=== PATIENT | female | born 1950 | race Caucasian/White ===

== ENCOUNTER 2019-03-22 13:11 | Emergency (ER) | payer MEDICARE, OTHER ==
[2019-03-22 13:23] VITALS: PULSE 91; O2SAT 94
--- NOTE | 2019-03-22 13:31 | ERPHSYRPT ---
- History of Present Illness Time Seen by Provider: 03/22/19 13:29 Source: patient Exam Limitations: no limitations Patient Subjective Stated Complaint: swallowed her daily meds and she thinks one is lodged in her lung, Triage Nursing Assessment: Pt walked into the ER, stated that she swallowed her pills and one was stuck and burning inside her right side of chest, right lung is wheezy, coarse and has stridor sounds, hypertensive, rates pain 5/10 Physician History: Pt walked into the ER, stated that she swallowed her pills and one was stuck and burning inside her right side of chest, Timing/Duration: today Associated Symptoms: cough Allergies/Adverse Reactions: Heparin Analogues [Heparin Agents] Allergy (Verified 03/22/19 13:24) iodine Allergy (Verified 03/22/19 13:24) nalbuphine [From Nubain] Allergy (Verified 03/22/19 13:24) Home Medications: Amitrip HCl/Chlordiazepoxide [Amitrip-Cdp 25-10 Tablet] 1 each PO HS 10/14/12 [ History] Aspirin EC 81 mg [Ecotrin 81 mg] 81 mg PO DAILY 10/14/12 [History] Buspirone HCl 15 mg PO BID 10/14/12 [History] Calcium Carbonate/Vitamin D3 [Calcium 600 + Vit D Caplet] 1 each PO DAILY [History] Cyanocobalamin 100 Mcg [Vitamin B-12 100 Mcg] 1 ml IM 10/14/12 [History] Divalproex Sodium 250 mg [Divalproex DR 250 mg Tab] 250 mg PO HS 10/14/12 [ History] Meloxicam 15 mg [Meloxicam 15 MG] 15 mg PO DAILY 10/14/12 [History] Metaxalone [Skelaxin] 800 mg PO QID 10/14/12 [History] Multivit with Calcium,Iron,Min [Womens Multiple Vitamins] 1 each PO DAILY [History] OXcarbazepine [Oxcarbazepine] 600 mg PO DAILY 10/14/12 [History] Omeprazole 40 mg PO BID 10/14/12 [History] Tizanidine HCl 4 mg PO BID 10/14/12 [History] Alprazolam [Xanax] 0.5 mg PO Q6HPRN PRN 03/12/15 [History] Hx Tetanus, Diphtheria Vaccination/Date Given: No Hx Influenza Vaccination/Date Given: Yes Hx Pneumococcal Vaccination/Date Given: No - Review of Systems Constitutional: No Symptoms Eyes: No Symptoms Ears, Nose, & Throat: No Symptoms Respiratory: Wheezing Cardiac: No Symptoms Abdominal/Gastrointestinal: No Symptoms Genitourinary Symptoms: No Symptoms Musculoskeletal: No Symptoms - Past Medical History Pertinent Past Medical History: Yes Neurological History: Peripheral Neuropathy ENT History: Macular Degeneration Cardiac History: Hypertension Respiratory History: Asthma Endocrine Medical History: No Pertinent History Musculoskeletal History: Arthritis, Fractures, Osteoporosis GI Medical History: Gallbladder Disease History: No Pertinent History Psycho-Social History: Anxiety Female Reproductive Disorders: Uterine Cancer Other Medical History: HEART CATH - Past Surgical History Past Surgical History: Yes Neuro Surgical History: No Pertinent History Cardiac: Cardiac Catheterization Respiratory: No Pertinent History Gastrointestinal: Cholecystectomy Genitourinary: No Pertinent History Musculoskeletal: Joint Replacement, Orthopedic Surgery Female Surgical History: Hysterectomy Other Surgical History: gastric bypass HYSTERECTOMY - Social History Smoking Status: Never smoker Exposure to second hand smoke: No Drug Use: none Patient Lives Alone: No - Female History Hx Now: No - Nursing Vital Signs Nursing Vital Signs: Initial Vital Signs O2 Sat by Pulse Oximetry 95 03/22/19 13:14 Pain Scale Pain Intensity 5 - Physical Exam General Appearance: no apparent distress, alert Eye Exam: PERRL/EOMI, eyes nml inspection Ears, Nose, Throat Exam: normal ENT inspection, TMs normal, pharynx normal, moist mucous membranes Neck Exam: normal inspection, non-tender, supple, full range of motion Respiratory Exam: wheezing, No respiratory distress Cardiovascular Exam: regular rate/rhythm, normal heart sounds, normal peripheral pulses Gastrointestinal/Abdomen Exam: soft, normal bowel sounds, No tenderness, No mass Back Exam: normal inspection, normal range of motion, No CVA tenderness, No vertebral tenderness Extremity Exam: normal inspection, normal range of motion, pelvis stable Neurologic Exam: alert, oriented x 3, cooperative, normal mood/affect, nml cerebellar function, nml station & gait, sensation nml, No motor deficits Skin Exam: normal color, warm, dry, No rash Lymphatic Exam: No adenopathy SpO2: 94 - Course Nursing assessment & vital signs reviewed: Yes - Radiology Exams Chest X-ray Interpretation: Reviewed by me, No Pneumonia, No Pneumothorax Abdomen X-ray Interpretation: Reviewed by me, Negative Ordered Tests: Active Orders 24 hr Category Date Time Status BARIUM SWALLOW ESOPHOGRAM Stat Exams 03/22/19 Ordered CHEST 2 VIEWS (PA AND LAT) Stat Exams 03/22/19 13:25 Taken KUB Stat Exams 03/22/19 13:25 Taken - Progress Progress: improved Counseled pt/family regarding: diagnosis, need for follow-up, rad results - Departure Departure Disposition: Home Clinical Impression: Pill dysphagia, Pill esophagitis Condition: Stable Critical Care Time: No Referrals: MYRA KELLER NP [Primary Care Provider] - Additional Instructions: During your ER visit, it appears that some of the medication pills she took one of them temporarily got stuck in the mid part of your esophagus and cause some scratching, which has been causing you coughing and wheezing. Please take all your medication not altogether, but out and take 1 or 2 pills at that time with either applesauce or milk. He will have some coughing spell for at least next 24 hours. Follow-up with your primary care physician in one to 2 days.
[2019-03-22 14:12] VITALS: BP 135/81
--- NOTE | 2019-03-22 21:14 | XRAY ---
Indication: Pill stuck in esophagus. Comparison: None KUB nonacute and nonobstructed with cholecystectomy clips, gastric bypass surgery, and a few pelvic phleboliths. Solid organs unremarkable. Osseous structures intact with moderate/advanced multilevel degenerative spondylosis and mild lumbar dextroscoliosis. Impression: Negative KUB with incidental chronic findings.
--- NOTE | 2019-03-22 21:17 | XRAY ---
Indication: Pill stuck in esophagus. Comparison: October 14, 2012. PA/lateral chest demonstrates minimal left mid lung fibrosis/scarring. No focal infiltrate, consolidation, large effusion, or radiopaque foreign body. Heart and mediastinal structures are within normal limits. Bony thorax intact with mild degenerative changes including right shoulder and lumbar scoliosis. Impression: Nonacute chest with chronic features.
== END 2019-03-22 14:11 | disposition home or self-care (01) ==
LOC: ED 13:11
DX: R13.10 Dysphagia, unspecified (principal); K20.9 Esophagitis, unspecified; T18.198A Other foreign object in esophagus causing other injury, initial encounter; I10 Essential (primary) hypertension; M81.0 Age-related osteoporosis without current pathological fracture; G62.9 Polyneuropathy, unspecified; J45.909 Unspecified asthma, uncomplicated; Z79.899 Other long term (current) drug therapy; Z85.42 Personal history of malignant neoplasm of other parts of uterus
CPT/HCPCS: 71046; 74018; 99283

== ENCOUNTER 2021-06-08 14:16 | Day surgery (SDC) | payer MEDICARE, OTHER ==
[2021-06-08] MEDS ORDERED: Sodium Chloride 0.9(Preservative Free) 10 ML IJ ONE (14:17)
[2021-06-08] MEDS ORDERED: Depo-Medrol 40 MG/ML IM ONE (14:17)
[2021-06-08] MEDS ORDERED: DIPRIVAN 200 MG/20 ML IV ONE (15:19)
[2021-06-08] MEDS ORDERED: Lactated Ringers 1,000 ML IV ONE (15:23)
[2021-06-08] MEDS ORDERED: MORPHINE SULFATE 2 MG INJ ONE (15:40)
--- NOTE | 2021-06-08 16:41 | XRAY ---
Indication: Right L3-L5 transforaminal VEENA. Intraoperative fluoroscopy provided for 57 seconds. 5 digital spot images submitted for interpretation demonstrates posterior needle tips projecting over the expected right L4 and L5 nerve roots. Small amount of contrast injected for needle tip placement. Correlate with intraoperative findings/report.
--- NOTE | 2021-06-08 16:44 | XRAY ---
57 seconds fluoroscopy time in surgery for right L3-L5 transforaminal VEENA.
== END 2021-06-08 15:55 | disposition home or self-care (01) ==
LOC: SDC-PAIN 14:16
PROVIDERS: ATTEND Psychiatry & Neurology Pain Medicine
DX: M54.16 Radiculopathy, lumbar region (principal); Z79.899 Other long term (current) drug therapy
CPT/HCPCS: 64483; 64484; 72100; 77003; J1030; J2270; J2704; Q9966

== ENCOUNTER 2021-06-22 07:37 | Day surgery (SDC) | payer MEDICARE, OTHER ==
[2021-06-22] MEDS ORDERED: Depo-Medrol 40 MG/ML IM ONE (07:38)
[2021-06-22] MEDS ORDERED: LIDOCAINE HCL 2% 100 MG/5 ML IJ ONE (07:38)
[2021-06-22] MEDS ORDERED: DIPRIVAN 200 MG/20 ML IV ONE (08:50)
--- NOTE | 2021-06-22 10:22 | XRAY ---
Indication: Bilateral L4-S1 MBB. Intraoperative fluoroscopy provided for 17 seconds. Single digital spot image submitted for interpretation demonstrates posterior needle tips projecting over the expected left and right L4-S1 nerve roots. Correlate with intraoperative findings/report.
--- NOTE | 2021-06-22 12:09 | XRAY ---
17 seconds of fluoroscopy was used in surgery for a bilateral L4-S1 MBB.
[2021-06-22] MEDS ORDERED: Lactated Ringers 1,000 ML IV ONE (16:25)
== END 2021-06-22 09:40 | disposition home or self-care (01) ==
LOC: SDC-PAIN 07:37
PROVIDERS: ATTEND Psychiatry & Neurology Pain Medicine
DX: M47.816 Spondylosis without myelopathy or radiculopathy, lumbar region (principal); Z79.899 Other long term (current) drug therapy
CPT/HCPCS: 64493; 64494; 72020; 77002; J1030; J2704

== ENCOUNTER 2021-08-03 11:27 | Day surgery (SDC) | payer MEDICARE, OTHER ==
[~2021-08-03 11:27] MED LIST: BENADRYL 50 MG/ML IV SCH
[2021-08-03] MEDS ORDERED: BUPIVACAINE 0.5% VIAL IJ ONE (11:28)
[2021-08-03] MEDS ORDERED: Depo-Medrol 40 MG/ML IM ONE (11:28)
[2021-08-03] MEDS ORDERED: BENADRYL 50 MG/ML ONE (11:51)
[2021-08-03] MEDS ORDERED: DIPRIVAN 200 MG/20 ML IV ONE (13:18)
--- NOTE | 2021-08-03 14:20 | XRAY ---
12 seconds fluoroscopy time in surgery for bilateral L4-S1 MBB
[2021-08-03] MEDS ORDERED: Lactated Ringers 1,000 ML IV ONE (14:31)
--- NOTE | 2021-08-03 14:31 | XRAY ---
Indication: Bilateral L4-S1 MBB. Intraoperative fluoroscopy provided for 12 seconds. Single digital spot image submitted for interpretation demonstrates posterior needle tips projecting over the expected left and right L4-S1 nerve roots. Correlate with intraoperative findings/report.
== END 2021-08-03 13:45 | disposition home or self-care (01) ==
LOC: SDC-PAIN 11:27
PROVIDERS: ATTEND Psychiatry & Neurology Pain Medicine
DX: M47.816 Spondylosis without myelopathy or radiculopathy, lumbar region (principal); I10 Essential (primary) hypertension; Z79.899 Other long term (current) drug therapy
CPT/HCPCS: 64493; 64494; 72020; 77002; J1030; J1200; J2704

== ENCOUNTER 2021-08-24 10:05 | Day surgery (SDC) | payer MEDICARE, OTHER ==
[2021-08-24] MEDS ORDERED: Xylocaine 1% Vial 30 ML PF IJ ONE (10:06)
[2021-08-24] MEDS ORDERED: BUPIVACAINE 0.5% VIAL IJ ONE (10:06)
[2021-08-24] MEDS ORDERED: Depo-Medrol 40 MG/ML IM ONE (10:06)
[2021-08-24] MEDS ORDERED: BENADRYL 50 MG/ML ONE (11:21)
[2021-08-24] MEDS ORDERED: DIPRIVAN 200 MG/20 ML IV ONE ×2 (11:47→12:18)
[2021-08-24] MEDS ORDERED: Ketamine HCl 50 MG/ML ONE (11:47)
[2021-08-24] MEDS ORDERED: Lactated Ringers 1,000 ML IV ONE (12:05)
--- NOTE | 2021-08-24 13:19 | XRAY ---
Indication: Right L4-S1 RFA. Intraoperative fluoroscopy provided for 31 seconds. 3 digital spot image submitted for interpretation demonstrates posterior needle tips projecting over the expected right L4-S1 nerve roots. Correlate with intraoperative findings/report.
--- NOTE | 2021-08-24 13:23 | XRAY ---
31 seconds fluoroscopy time in surgery for right L4-S1 RFA.
== END 2021-08-24 12:20 | disposition home or self-care (01) ==
LOC: SDC-PAIN 10:05
PROVIDERS: ATTEND Psychiatry & Neurology Pain Medicine
DX: M47.816 Spondylosis without myelopathy or radiculopathy, lumbar region (principal); Z79.899 Other long term (current) drug therapy
CPT/HCPCS: 64635; 64636; 72100; 77002; J1030; J1200; J2001; J2704

== ENCOUNTER 2021-08-31 12:52 | Day surgery (SDC) | payer MEDICARE, OTHER ==
[2021-08-31] MEDS ORDERED: Xylocaine 1% Vial 30 ML PF IJ ONE (12:53)
[2021-08-31] MEDS ORDERED: Depo-Medrol 40 MG/ML IM ONE (12:53)
[2021-08-31] MEDS ORDERED: BUPIVACAINE 0.5% VIAL IJ ONE (12:53)
[2021-08-31] MEDS ORDERED: BENADRYL 50 MG/ML ONE ×2 (13:14→15:08)
[2021-08-31] MEDS ORDERED: Lactated Ringers 1,000 ML IV ONE (14:57)
[2021-08-31] MEDS ORDERED: DIPRIVAN 200 MG/20 ML IV ONE (15:07)
--- NOTE | 2021-08-31 17:05 | XRAY ---
29 seconds of fluoroscopy was used in surgery for a left L4-S1 RFA.
--- NOTE | 2021-08-31 17:09 | XRAY ---
Indication: Left L4-S1 RFA. Intraoperative fluoroscopy provided for 29 seconds. 3 digital spot image submitted for interpretation demonstrates posterior needle tips projecting over the expected left L4-S1 nerve roots. Correlate with intraoperative findings/report.
== END 2021-08-31 15:45 | disposition home or self-care (01) ==
LOC: SDC-PAIN 12:52
PROVIDERS: ATTEND Psychiatry & Neurology Pain Medicine
DX: M47.816 Spondylosis without myelopathy or radiculopathy, lumbar region (principal); I10 Essential (primary) hypertension; Z79.899 Other long term (current) drug therapy
CPT/HCPCS: 64635; 64636; 72100; 77002; J1030; J1200; J2001; J2704

== ENCOUNTER 2021-10-03 08:45 | Day surgery (SDC) | payer MEDICARE, OTHER ==
--- NOTE | 2021-10-03 08:17 | HP ---
DATE OF SURGERY: 10/03/2021 HISTORY OF PRESENT ILLNESS: The patient is a 70-year-old with some heartburn up into her jaw area, some dysphagia upper esophagus at times. Family history negative for esophageal cancer. She is in need of upper endoscopy possible biopsy, possible dilatation. PAST MEDICAL HISTORY: Arthritis, chronic migraines, asthma. PAST SURGICAL HISTORY: Knees replacement. Left ankle surgery in the past. Stomach bypass in the past. Heart cath. Endoscopy in the past. Hysterectomy for uterine cancer in the past. Breast cancer with partial mastectomy and radiation treatment in the past. MEDICATIONS: Includes multivitamin, magnesium complex, baby aspirin, Probiotic, glucosamine, vitamin D3, zinc, iron, melatonin, lutein, calcium with vitamin D, potassium, furosemide, Valproic acid, colchicine, levothyroxine for some hypothyroidism, metoprolol, diclofenac, tamoxifen, meclizine, amitriptyline, omeprazole, valsartan, Fosamax, perphenazine, Zonegran, memantine, vitamin B12, diphenhydramine PRN, baclofen, Vicodin PRN, hydroxyzine PRN, fluconazole. ALLERGIES: NUBAIN. IODINE. HEPARIN. SHE HAD PROBLEMS CHLORAPREP IN THE PAST. FAMILY HISTORY: Negative for esophageal cancer. SOCIAL HISTORY: No smoking or alcohol abuse. REVIEW OF SYSTEMS: Fourteen systems reviewed pertinent for multiple problems noted above and per admission assessment. No chest pain or palpitations. PHYSICAL EXAMINATION: GENERAL: No acute distress. HEENT: Sclerae nonicteric. NECK: No JVD. CHEST: Equal excursion, nonlabored breathing. CVS: Regular rate and rhythm. ABDOMEN: Soft. No peritoneal signs. EXTREMITIES: No significant edema. NEURO: Alert, oriented, moving extremities symmetrically. PSYCH: Appropriate mood and affect. IMPRESSION: Increased reflux with history of some dysphagia upper esophagus. She is in need of upper endoscopy possible biopsy possible dilatation. Risks and benefits explained in detail including but not limited to bleeding or infection, risk of bowel injury or perforation possibly requiring open procedure, risk of missed or nondiagnosis or incomplete exam possibly requiring barium swallow, other studies or procedures. General risk of anesthesia or sedation. If dilatation performed possibility may need to be repeated again down the road if it improves her swallowing. There is a possibility she may have more of a neurologic or functional problem then dilatation may not improve her swallowing. She may need further work up and/or testing, other studies or procedures or referrals. She understands she has slight increased risk of perforation if dilatation performed possibly requiring major procedure, ongoing morbidity/mortality but not limited to. Will proceed with EGD possible biopsy, possible dilatation as an outpatient.
[2021-10-03] MEDS ORDERED: Lactated Ringers 1,000 ML IV SCH (09:00)
[2021-10-03] MEDS ORDERED: Lactated Ringers 1,000 ML IV ONE (09:11)
[2021-10-03] MEDS ORDERED: Xylocaine-Mpf 2% 5 Ml Vial ONE (11:05)
[2021-10-03] MEDS ORDERED: DIPRIVAN 200 MG/20 ML IV ONE ×2 (11:05→11:23)
[2021-10-03 12:38] VITALS: BP 140/91; PULSE 78; O2SAT 99
--- NOTE | 2021-10-03 15:24 | OP ---
SURGERY DATE/TIME: 10/03/2021 1108 PREOPERATIVE DIAGNOSIS: Some dysphagia and some epigastric pain. POSTOPERATIVE DIAGNOSES: 1) Proximal esophageal narrowing and spasm without evidence of any mass. 2) Large amount of mucous throughout the esophagus and upper GI tract. PROCEDURES: 1) Esophagogastrojejunoscopy with random cold biopsy of small bowel for path, random cold biopsies to evaluate for path, random cold biopsies mid esophagus to evaluate for eosinophilic esophagitis or other etiology. 2) Proximal esophageal balloon dilatation (size 20 balloon dilator). SURGEON: Dr. Edward Dyer. ANESTHESIA: MAC. ESTIMATED BLOOD LOSS: Minimal. INDICATIONS: As noted above. Risks and benefits explained in detail and not limited to and consent obtained. DESCRIPTION OF PROCEDURE AND FINDINGS: The patient is taken to the endoscopy room. MAC anesthesia introduced. After official time out and no disagreement with planned procedure, bite block positioned. Video gastroscope passed down the oropharynx. There was some spasm and narrowing of proximal esophagus. There was no gross mass or lesion to biopsy. The scope was able to be passed through here into her stomach pouch into her jejunal loop. She had a large amount of mucous throughout the esophagus and stomach pouch. Because of this she had a little bit of epigastric discomfort. It was felt she warranted random cold biopsies of the small bowel, stomach as well as the mid esophagus to evaluate for other etiology and to evaluate for eosinophilic esophagitis as well. The gastroesophageal junction had been about 38 cm. Z-line as fairly crisp. There were no signs of any obvious erosions. No signs of any Roberts's. After doing a biopsy, good hemostasis noted. The scope passed back down into the stomach pouch. The size 20 balloon catheter carefully advanced under direct vision and pulled up to the proximal esophageal narrowed area where it was carefully inflated first stage for 40 seconds, second stage 45 seconds, final stage 2 minutes size 20 balloon dilator The balloon was then released and withdrawn. The scope much more easily passed through this area back down in the stomach and carefully withdrawn. There was no evidence of any full thickness issues. No evidence of any injury secondary to dilatation. The patient tolerated the procedure well. There is no family here to discuss the findings with.
== END 2021-10-03 12:30 | disposition home or self-care (01) ==
LOC: SDC 08:45
PROVIDERS: ATTEND Surgery
DX: Q39.3 Congenital stenosis and stricture of esophagus (principal); R10.13 Epigastric pain; R13.10 Dysphagia, unspecified; K22.4 Dyskinesia of esophagus
CPT/HCPCS: C1726; J2704

== ENCOUNTER 2021-12-28 07:00 | Day surgery (SDC) | payer MEDICARE, OTHER ==
[2021-12-28] MEDS ORDERED: BUPIVACAINE 0.5% VIAL IJ ONE (07:01)
[2021-12-28] MEDS ORDERED: Depo-Medrol 40 MG/ML IM ONE (07:01)
[2021-12-28] MEDS ORDERED: Lactated Ringers 1,000 ML IV ONE (08:23)
[2021-12-28] MEDS ORDERED: DIPRIVAN 200 MG/20 ML IV ONE (08:45)
--- NOTE | 2021-12-28 10:12 | XRAY ---
Indication: Bilateral SI joint injection. Intraoperative fluoroscopy provided for 25 seconds. 4 digital spot images submitted for interpretation demonstrates posterior needle tip projecting over the inferior left and right SI joint. Correlate with intraoperative findings/report.
--- NOTE | 2021-12-28 11:36 | XRAY ---
18 seconds fluoroscopy time in surgery for injections of both SI joints.
== END 2021-12-28 09:08 | disposition home or self-care (01) ==
LOC: SDC-PAIN 07:00
PROVIDERS: ATTEND Psychiatry & Neurology Pain Medicine
DX: M46.1 Sacroiliitis, not elsewhere classified (principal); I10 Essential (primary) hypertension; Z79.899 Other long term (current) drug therapy
CPT/HCPCS: 27096; 72202; 77002; G0260; J1030; J2704

== ENCOUNTER 2022-02-28 15:50 | Emergency (ER) | payer MEDICARE, OTHER ==
--- NOTE | 2022-02-28 16:39 | ERPHSYRPT ---
- History of Present Illness Time Seen by Provider: 02/28/22 16:20 Source: patient Exam Limitations: no limitations Patient Subjective Stated Complaint: pt here for profound weakness that started yesterday, she also states she was nasueated yesterdy and vomited a few times, states last night her left eye was drooping and she was falling a sleep while trying to get out of bed Triage Nursing Assessment: pt alert, oreinted, arrived per , able to walked to bathroom for hallway, skin w/d/p. face mask inplace. no edema noted, abd soft Physician History: Patient is a 71-year-old white female who presents with a complaint of the sudden onset of weakness yesterday while she was traveling nausea and vomiting. She was traveling to [place] and started feeling tired but when she got there she felt better and then on the way home last night she had a droopy left eyelid and was falling asleep she. She also complained of weakness nausea and today slept all day. She also reportedly had a fever of 100.7 at home last night. She has multiple medical problems and a very long list of medications Timing/Duration: yesterday Severity: moderate Modifying Factors: Improves With: rest Associated Symptoms: nausea, vomiting, weakness Allergies/Adverse Reactions: Heparin Analogues [Heparin Agents] Allergy (Verified 02/28/22 16:15) Difficulty Breathing states increased heartrate iodine Allergy (Verified 02/28/22 16:15) Rash itching iodine povacrylex [From DuraPrep] Allergy (Verified 02/28/22 16:15) isopropyl alcohol [From DuraPrep] Allergy (Verified 02/28/22 16:15) nalbuphine [From Nubain] Allergy (Verified 02/28/22 16:15) Difficulty Breathing states hives and rash povidone-iodine [From Betadine] Allergy (Verified 02/28/22 16:15) chloraprep Allergy (Uncoded 02/28/22 16:15) Home Medications: Calcium Carbonate/Vitamin D3 [Calcium 600-Vit D3 400 Caplet] 1 each PO DAILY 10/14/12 [History] Multivit with Calcium,Iron,Min [Womens Multiple Vitamins] 1 each PO DAILY 10/14/12 [History] Omeprazole 40 mg PO DAILY 10/14/12 [History] ALPRAZolam [Xanax] 0.5 mg PO Q6HPRN PRN 03/12/15 [History] Baclofen 10 mg [Lioresal 10 mg] 20 mg PO TID PRN 03/22/19 [History] Diclofenac Sodium 75 mg PO BID 03/22/19 [History] Diphenhydramine HCl 50 mg/ml [Benadryl 50 mg/ml] 50 mg SQ Q12H 03/22/19 [History] Glucosamine Sulfate 1,000 mg PO DAILY 03/22/19 [History] Memantine HCl 10 mg PO BID 03/22/19 [History] Metoprolol Succinate 50 mg [Toprol Xl 50 MG] 50 mg PO HS 03/22/19 [History] Perphenazine 4 mg PO HS 03/22/19 [History] Promethazine HCl 50 mg PO Q6H PRN 03/22/19 [History] Tamoxifen Citrate 20 mg PO HS 03/22/19 [History] Valsartan 80 mg PO HS 03/22/19 [History] hydrOXYzine HCL [Hydroxyzine HCl] 50 mg PO DAILY PRN 03/22/19 [History] Butalbit/Acetamin/Caff/Codeine [Fioricet-Cod 41-182-74-30 Cap] 1 each PO UD 09/21/21 [History] Furosemide 20 mg [Lasix 20 mg] 20 mg PO DAILY 09/21/21 [History] Lutein 40 mg PO HS 09/21/21 [History] Melatonin 10 mg PO HS 09/21/21 [History] Zinc Amino Acid Chelate [Zinc] 50 mg PO DAILY 09/21/21 [History] Albuterol 8 gm Mdi Hfa [Ventolin Hfa MDI] 8 gm IH QIDPRN PRN 01/04/22 [History] Alendronate Sodium 70 mg [Fosamax 70 MG] 70 mg PO WEEKLY 01/04/22 [History] Allopurinol 300 mg [Zyloprim 300 mg] 300 mg PO DAILY 01/04/22 [History] Cholecalciferol (Vitamin D3) [Vitamin D3] 25 mcg PO DAILY 01/04/22 [History] Fluticasone Propion/Salmeterol [Fluticasone-Salmeterol 250-50] 1 each IH UD 01/04/22 [History] Hydrocodone/Acetaminophen [Vicodin Hp 10-300 mg Tablet] 5 - 325 mg PO DAILY PRN PRN 01/04/22 [History] Indomethacin 50 mg PO DAILY 01/04/22 [History] Lactobacillus Combination No.4 [Probiotic] 1 each PO DAILY 01/04/22 [History] Levothyroxine Sodium 88 Mcg [Synthroid 88 Mcg] 88 mcg PO DAILY 01/04/22 [History] Magnesium Oxide,Aspartate,Citr [Triple Magnesium Complex] 500 mg PO UD 01/04/22 [History] Potassium Chloride 10 meq PO DAILY 01/04/22 [History] Triamcinolone 0.1% Cream [Kenalog 0.1% Cream 15 gm] 15 gm TP UD 01/04/22 [History] Ubrogepant [Ubrelvy] 50 mg PO DAILY 01/04/22 [History] Valproic Acid 250 mg PO DAILY 01/04/22 [History] Zonisamide [Zonegran] 50 mg PO DAILY 01/04/22 [History] Iron,Carbonyl [Iron Chews] 65 mg DAILY 02/28/22 [History] Hx Tetanus, Diphtheria Vaccination/Date Given: No Hx Influenza Vaccination/Date Given: Yes Hx Pneumococcal Vaccination/Date Given: Yes Immunizations Up to Date: Yes Travel Risk - International Travel Have you traveled outside of the country in past 3 weeks: No - Coronavirus Screening Are you exhibiting any of the following symptoms?: Yes Symptoms: Fever, Vomiting/Diarrhea Close contact with a COVID-19 positive Pt in past 14-21 Days: No - Vaccine Status Have you recieved a Covid-19 vaccination: Yes [employer] Professional: Moderna - Vaccination Dates Date of 2cond Vaccination (if applicable): 2020 - Review of Systems Constitutional: Lethargy, Weakness Eyes: Other (Transient droopiness of the left eye) Ears, Nose, & Throat: No Symptoms Respiratory: No Cough, No Dyspnea Cardiac: No Chest Pain, No Edema, No Syncope Abdominal/Gastrointestinal: Nausea, Vomiting, Diarrhea Genitourinary Symptoms: Frequency, Urgency Musculoskeletal: No Back Pain, No Neck Pain Skin: No Rash Neurological: Dizziness, Headache Psychological: No Symptoms Endocrine: No Symptoms - Past Medical History Pertinent Past Medical History: Yes Neurological History: Peripheral Neuropathy ENT History: Macular Degeneration Cardiac History: Angina, Hypertension, Other Respiratory History: Asthma, Sleep Apnea Endocrine Medical History: No Pertinent History Musculoskeletal History: Arthritis, Fractures, Osteoporosis GI Medical History: Gallbladder Disease History: No Pertinent History Psycho-Social History: Anxiety Female Reproductive Disorders: Breast Cancer, Uterine Cancer Other Medical History: HEART CATH. hx palpatations - Past Surgical History Past Surgical History: Yes Neuro Surgical History: No Pertinent History Cardiac: Cardiac Catheterization Respiratory: No Pertinent History Gastrointestinal: Cholecystectomy Genitourinary: No Pertinent History Musculoskeletal: Joint Replacement, Orthopedic Surgery Female Surgical History: Hysterectomy Other Surgical History: gastric bypass HYSTERECTOMY, bilat knee replacement, left ankle - Social History Smoking Status: Never smoker Exposure to second hand smoke: No Drug Use: none Patient Lives Alone: No - Nursing Vital Signs Nursing Vital Signs: Initial Vital Signs Temperature 97 F 02/28/22 16:05 Pulse Rate 75 02/28/22 16:05 Respiratory Rate 20 02/28/22 16:05 Blood Pressure 119/46 02/28/22 16:05 O2 Sat by Pulse Oximetry 95 02/28/22 16:05 Pain Scale Pain Intensity 4 - Physical Exam General Appearance: mild distress, alert, obese Eye Exam: PERRL/EOMI, eyes nml inspection Ears, Nose, Throat Exam: normal ENT inspection, TMs normal, pharynx normal, moist mucous membranes Neck Exam: normal inspection, non-tender, supple, full range of motion Respiratory Exam: normal breath sounds, lungs clear, No respiratory distress Cardiovascular Exam: regular rate/rhythm, normal heart sounds, normal peripheral pulses Gastrointestinal/Abdomen Exam: soft, normal bowel sounds, No tenderness, No mass Back Exam: normal inspection, normal range of motion, No CVA tenderness, No vert ebral tenderness Extremity Exam: normal inspection, normal range of motion, pelvis stable Neurologic Exam: alert, oriented x 3, cooperative, normal mood/affect, nml cerebellar function, nml station & gait, sensation nml, No motor deficits Skin Exam: normal color, warm, dry, No rash Lymphatic Exam: No adenopathy SpO2 Interpretation: normal SpO2: 95 O2 Delivery: Room Air - Course Nursing assessment & vital signs reviewed: Yes - Radiology Exams Abdomen X-ray Interpretation: Negative - CT Exams Head CT Interpretation: Negative Abdomen/Pelvis CT Interpretation: Other (No acute findings) Ordered Tests: Active Orders 24 hr Category Date Time Status EKG-ER Only STAT Care 02/28/22 16:07 Active IV Insertion STAT Care 02/28/22 16:07 Active ABDOMEN AND PELVIS W/0 CONTRAS [CT] Stat Exams 02/28/22 17:49 Taken HEAD WITHOUT CONTRAST [CT] Stat Exams 02/28/22 16:33 Completed OBSTR/ACUTE ABDOMEN SERIES Stat Exams 02/28/22 16:10 Completed AMYLASE Stat Lab 02/28/22 16:35 Completed BLOOD CULTURE Stat Lab 02/28/22 16:50 Received CBC W DIFF Stat Lab 02/28/22 16:35 Completed CMP Stat Lab 02/28/22 16:35 Completed CULTURE,URINE Stat Lab 02/28/22 16:20 Received LIPASE Stat Lab 02/28/22 16:35 Completed Lactic Acid Stat Lab 02/28/22 16:30 Completed Lactic Acid Stat Lab 02/28/22 18:36 Received PROTIME WITH INR Stat Lab 02/28/22 16:35 Completed TROPONIN Q3H Lab 02/28/22 16:35 Completed TROPONIN Q3H Lab 02/28/22 19:15 Ordered TROPONIN Q3H Lab 02/28/22 22:15 Ordered TROPONIN Q3H Lab 03/01/22 01:15 Ordered TROPONIN Q3H Lab 03/01/22 04:15 Ordered UA W/RFX CULTURE Stat Lab 02/28/22 16:20 Completed Medication Summary Generic Name Dose Route Start Last Admin Trade Name Freq PRN Reason Stop Dose Admin Ceftriaxone Sodium/Dextrose 1 g in 50 mls @ 100 mls/hr 02/28/22 19:05 02/28/22 19:10 Rocephin 1 Gm-D5w 50 Ml Bag IV 02/28/22 19:34 100 ml/hr STAT STA 100 mls/hr Administration Discontinued Medications Generic Name Dose Route Start Last Admin Trade Name Freq PRN Reason Stop Dose Admin Ceftriaxone Sodium/Dextrose Confirm 02/28/22 19:09 Rocephin 1 Gm-D5w 50 Ml Bag Administered 02/28/22 19:10 Dose 1 g in 50 mls @ ud IV .STK-MED ONE Lab/Rad Data: Laboratory Result Diagrams 02/28/22 16:35 02/28/22 16:35 Laboratory Results 02/28/22 02/28/22 02/28/22 Range/Units 17:45 16:35 16:35 WBC (4.0-10.5) x10^3/uL RBC (4.1-5.4) x10^6/uL Hgb (12.0-16.0) g/dL Hct (35-47) % MCV (78-100) fL MCH (26-32) pg MCHC (32-36) g/dL RDW (11.5-14.0) % Plt Count (150-450) x10^3/uL MPV (7.5-11.0) fL Gran % (36.0-66.0) % Immature Gran % (Auto) (0.00-0.4) % Nucleat RBC Rel Count (0.00-0.1) % Eos # (Auto) (0-0.5) x10^3/uL Immature Gran # (Auto) (0.00-0.03) x10^3u/L Absolute Lymphs (auto) (1.0-4.6) x10^3/uL Absolute Monos (auto) (0.0-1.3) x10^3/uL Absolute Nucleated RBC (0.00-0.01) x10^3u/L Lymphocytes % (24.0-44.0) % Monocytes % (0.0-12.0) % Eosinophils % (0.00-5.0) % Basophils % (0.0-0.4) % Absolute Granulocytes (1.4-6.9) x10^3/uL Basophils # (0-0.4) x10^3/uL PT 11.2 (9.4-12.5) SECONDS INR 1.06 (0.8-3.0) Sodium (137-145) mmol/L Potassium (3.5-5.1) mmol/L Chloride (98-107) mmol/L Carbon Dioxide (22-30) mmol/L Anion Gap (5-15) MEQ/L BUN (7-17) mg/dL Creatinine (0.52-1.04) mg/dL Estimated GFR ML/MIN Glucose (74-106) mg/dL Lactic Acid (0.4-2.0) Calcium (8.4-10.2) mg/dL Total Bilirubin (0.2-1.3) mg/dL AST (14-36) U/L ALT (0-35) U/L Alkaline Phosphatase (38-126) U/L Troponin I < 0.012 (0.000-0.034) ng/mL Serum Total Protein (6.3-8.2) g/dL Albumin (3.5-5.0) g/dL Amylase (30-110) U/L Lipase (23-300) U/L Urinalys Dipstick Clnc Urine Color (YELLOW) Urine Appearance (CLEAR) Urine pH (5-6) Ur Specific [place] (1.005-1.025) POC Urine Protein Conf (Negative) Urine Ketones (NEGATIVE) Urine Nitrite (NEGATIVE) Urine Bilirubin (NEGATIVE) Urine Urobilinogen (0-1) mg/dL Urine Leukocytes (NEGATIVE) Urine WBC (Auto) (0-5) /HPF Urine RBC (Auto) (0-2) /HPF U Hyaline Cast (Auto) (0-2) /LPF U Epithel Cells (Auto) (FEW) /HPF Urine Bacteria (Auto) (NEGATIVE) /HPF Urine RBC (0-5) [place]/ul Unidentified Crystals (NEGATIVE) /HPF Other Casts (Auto) (NEGATIVE) /LPF Urine Mucus (Auto) (NEGATIVE) /HPF Ur Culture Indicated? Urine Glucose (NEGATIVE) mg/dL Influenza Type A Ag NEGATIVE (NEGATIVE) Influenza Type B Ag NEGATIVE (NEGATIVE) RSV (PCR) NEGATIVE (Negative) SARS-CoV-2 (PCR) NEGATIVE (NEGATIVE) 02/28/22 02/28/22 02/28/22 Range/Units 16:35 16:35 16:30 WBC 15.5 H (4.0-10.5) x10^3/uL RBC 3.89 L (4.1-5.4) x10^6/uL Hgb 12.2 (12.0-16.0) g/dL Hct 38.6 (35-47) % MCV 99.2 (78-100) fL MCH 31.4 (26-32) pg MCHC 31.6 L (32-36) g/dL RDW 13.4 (11.5-14.0) % Plt Count 287 (150-450) x10^3/uL MPV 10.3 (7.5-11.0) fL Gran % 80.4 H (36.0-66.0) % Immature Gran % (Auto) 0.4 (0.00-0.4) % Nucleat RBC Rel Count 0.0 (0.00-0.1) % Eos # (Auto) 0.20 (0-0.5) x10^3/uL Immature Gran # (Auto) 0.06 H (0.00-0.03) x10^3u/L Absolute Lymphs (auto) 1.95 (1.0-4.6) x10^3/uL Absolute Monos (auto) 0.77 (0.0-1.3) x10^3/uL Absolute Nucleated RBC 0.00 (0.00-0.01) x10^3u/L Lymphocytes % 12.6 L (24.0-44.0) % Monocytes % 5.0 (0.0-12.0) % Eosinophils % 1.3 (0.00-5.0) % Basophils % 0.3 (0.0-0.4) % Absolute Granulocytes 12.43 H (1.4-6.9) x10^3/uL Basophils # 0.04 (0-0.4) x10^3/uL PT (9.4-12.5) SECONDS INR (0.8-3.0) Sodium 136 L (137-145) mmol/L Potassium 4.2 (3.5-5.1) mmol/L Chloride 104 (98-107) mmol/L Carbon Dioxide 26 (22-30) mmol/L Anion Gap 11.0 (5-15) MEQ/L BUN 20 H (7-17) mg/dL Creatinine 0.82 (0.52-1.04) mg/dL Estimated GFR > 60.0 ML/MIN Glucose 135 H (74-106) mg/dL Lactic Acid 2.5 H (0.4-2.0) Calcium 8.3 L (8.4-10.2) mg/dL Total Bilirubin 0.80 (0.2-1.3) mg/dL AST 26 (14-36) U/L ALT 18 (0-35) U/L Alkaline Phosphatase 44 (38-126) U/L Troponin I (0.000-0.034) ng/mL Serum Total Protein 5.8 L (6.3-8.2) g/dL Albumin 3.1 L (3.5-5.0) g/dL Amylase 45 (30-110) U/L Lipase 13 L (23-300) U/L Urinalys Dipstick Clnc Urine Color (YELLOW) Urine Appearance (CLEAR) Urine pH (5-6) Ur Specific [place] (1.005-1.025) POC Urine Protein Conf (Negative) Urine Ketones (NEGATIVE) Urine Nitrite (NEGATIVE) Urine Bilirubin (NEGATIVE) Urine Urobilinogen (0-1) mg/dL Urine Leukocytes (NEGATIVE) Urine WBC (Auto) (0-5) /HPF Urine RBC (Auto) (0-2) /HPF U Hyaline Cast (Auto) (0-2) /LPF U Epithel Cells (Auto) (FEW) /HPF Urine Bacteria (Auto) (NEGATIVE) /HPF Urine RBC (0-5) [place]/ul Unidentified Crystals (NEGATIVE) /HPF Other Casts (Auto) (NEGATIVE) /LPF Urine Mucus (Auto) (NEGATIVE) /HPF Ur Culture Indicated? Urine Glucose (NEGATIVE) mg/dL Influenza Type A Ag (NEGATIVE) Influenza Type B Ag (NEGATIVE) RSV (PCR) (Negative) SARS-CoV-2 (PCR) (NEGATIVE) 02/28/22 Range/Units 16:20 WBC (4.0-10.5) x10^3/uL RBC (4.1-5.4) x10^6/uL Hgb (12.0-16.0) g/dL Hct (35-47) % MCV (78-100) fL MCH (26-32) pg MCHC (32-36) g/dL RDW (11.5-14.0) % Plt Count (150-450) x10^3/uL MPV (7.5-11.0) fL Gran % (36.0-66.0) % Immature Gran % (Auto) (0.00-0.4) % Nucleat RBC Rel Count (0.00-0.1) % Eos # (Auto) (0-0.5) x10^3/uL Immature Gran # (Auto) (0.00-0.03) x10^3u/L Absolute Lymphs (auto) (1.0-4.6) x10^3/uL Absolute Monos (auto) (0.0-1.3) x10^3/uL Absolute Nucleated RBC (0.00-0.01) x10^3u/L Lymphocytes % (24.0-44.0) % Monocytes % (0.0-12.0) % Eosinophils % (0.00-5.0) % Basophils % (0.0-0.4) % Absolute Granulocytes (1.4-6.9) x10^3/uL Basophils # (0-0.4) x10^3/uL PT (9.4-12.5) SECONDS INR (0.8-3.0) Sodium (137-145) mmol/L Potassium (3.5-5.1) mmol/L Chloride (98-107) mmol/L Carbon Dioxide (22-30) mmol/L Anion Gap (5-15) MEQ/L BUN (7-17) mg/dL Creatinine (0.52-1.04) mg/dL Estimated GFR ML/MIN Glucose (74-106) mg/dL Lactic Acid (0.4-2.0) Calcium (8.4-10.2) mg/dL Total Bilirubin (0.2-1.3) mg/dL AST (14-36) U/L ALT (0-35) U/L Alkaline Phosphatase (38-126) U/L Troponin I (0.000-0.034) ng/mL Serum Total Protein (6.3-8.2) g/dL Albumin (3.5-5.0) g/dL Amylase (30-110) U/L Lipase (23-300) U/L Urinalys Dipstick Clnc MAIN LAB Urine Color YELLOW (YELLOW) Urine Appearance SLIGHTLY CLOUDY (CLEAR) Urine pH 5.5 (5-6) Ur Specific [place] 1.025 (1.005-1.025) POC Urine Protein Conf NEGATIVE (Negative) Urine Ketones NEGATIVE (NEGATIVE) Urine Nitrite NEGATIVE (NEGATIVE) Urine Bilirubin NEGATIVE (NEGATIVE) Urine Urobilinogen 0.2 (0-1) mg/dL Urine Leukocytes TRACE (NEGATIVE) Urine WBC (Auto) 26-50 (0-5) /HPF Urine RBC (Auto) 3-5 (0-2) /HPF U Hyaline Cast (Auto) 11-25 (0-2) /LPF U Epithel Cells (Auto) RARE (FEW) /HPF Urine Bacteria (Auto) PACKED (NEGATIVE) /HPF Urine RBC NEGATIVE (0-5) [place]/ul Unidentified Crystals 2-5 (NEGATIVE) /HPF Other Casts (Auto) 2-5 (NEGATIVE) /LPF Urine Mucus (Auto) SLIGHT (NEGATIVE) /HPF Ur Culture Indicated? YES Urine Glucose NEGATIVE (NEGATIVE) mg/dL Influenza Type A Ag (NEGATIVE) Influenza Type B Ag (NEGATIVE) RSV (PCR) (Negative) SARS-CoV-2 (PCR) (NEGATIVE) - Progress Progress: improved - Departure Departure Disposition: Home Clinical Impression: Urinary tract infection Condition: Stable Critical Care Time: No Referrals: MYRA KELLER NP [Primary Care Provider] - Follow up/PCP as directed Instructions: Urinary Tract Infection, Adult (DC) Prescriptions: Cephalexin Mh 500 mg [Keflex 500 mg] 500 mg PO QID #40 cap
[2022-02-28 16:55] LABS: Absolute Neutrophil Ct (ANC) 12.43 x10^3/uL (1.4-6.9); Basophil (Absolute #) 0.04 x10^3/uL (0-0.4); Eosinophil % 1.3 % (0.00-5.0); Hematocrit 38.6 % (35-47); Hemoglobin 12.2 g/dL (12.0-16.0); Lymphocyte (Absolute #) 1.95 x10^3/uL (1.0-4.6); Lymphocytes % 12.6 % (24.0-44.0); Mean Cell Volume 99.2 fL (78-100); Mean Corpuscular Hemoglobin 31.4 pg (26-32); Mean Corpuscular Hgb Concent. 31.6 g/dL (32-36); Mean Platelet Volume 10.3 fL (7.5-11.0); Monocyte (Absolute #) 0.77 x10^3/uL (0.0-1.3); Neutrophil % 80.4 % (36.0-66.0); Platelet Count 287 x10^3/uL (150-450); Red Blood Count 3.89 x10^6/uL (4.1-5.4); Red Cell Distribution Width 13.4 % (11.5-14.0); White Blood Count 15.5 x10^3/uL (4.0-10.5)
--- NOTE | 2022-02-28 16:57 | XRAY ---
Indication: Drooping left eye lid. Multiple contiguous axial images obtained through the head without contrast. Comparison: None Age-appropriate global atrophy and mild periventricular degenerative micro-ischemia bilaterally. No acute intracranial hemorrhage, abnormal extra-axial fluid collection, or mass effect. Fourth ventricle is midline without hydrocephalus. Bony calvarium intact. Visualized paranasal sinuses and mastoid air cells are clear. Impression: Nonacute senile brain.
--- NOTE | 2022-02-28 16:59 | XRAY ---
Indication: Nausea, vomiting, diarrhea. Comparison: Chest exam March 25, 2019. 2 view abdomen nonacute and nonobstructed with mild scattered colonic fecal debris greatest in ascending and transverse colon. Previous cholecystectomy. Remaining solid organs unremarkable. Osseous structures demonstrate osteopenia, moderate/advanced multilevel thoracolumbar degenerative spondylosis, and mild double curvature scoliosis. Single frontal chest again demonstrates normal heart and lungs. Bony thorax intact with again mild osteopenia and degenerative changes. Impression: Nonacute nonobstructed abdomen with chronic bony findings. Continued nonacute one view chest.
[2022-02-28 17:06] LABS: INR 1.06 (0.8-3.0); PROTIME 11.2 SECONDS (9.4-12.5)
[2022-02-28 17:13] LABS: ALBUMIN 3.1 g/dL (3.5-5.0); AMYLASE 45 U/L (30-110); BLOOD UREA NITROGEN 20 mg/dL (7-17); Calcium 8.3 mg/dL (8.4-10.2); Carbon Dioxide 26 mmol/L (22-30); Creatinine 1 0.82 mg/dL (0.52-1.04); EST GLOMERULAR FILTRATION RATE > 60.0 ML/MIN; Glucose 135 mg/dL (74-106); SGOT/AST 26 U/L (14-36); Total Protein 5.8 g/dL (6.3-8.2)
[2022-02-28 18:04] LABS: ALKALINE PHOSPHATASE 44 U/L (38-126); CHLORIDE 104 mmol/L (98-107); LIPASE 13 U/L (23-300); Potassium 4.2 mmol/L (3.5-5.1); SGPT/ALT 18 U/L (0-35); SODIUM 136 mmol/L (137-145)
[2022-02-28 18:07] LABS: Appearance SLIGHTLY CLOUDY (CLEAR); Bilirubin NEGATIVE (NEGATIVE); Glucose NEGATIVE (NEGATIVE); Ketones NEGATIVE (NEGATIVE); Specific Gravity 1.025 (1.005-1.025)
[2022-02-28 18:08] LABS: Dipstick done @ ? MAIN LAB; Nitrite NEGATIVE (NEGATIVE); Ph 5.5 (5-6); Protein,Urine Dip NEGATIVE (Negative); RBC NEGATIVE Ery/ul (0-5); Urobilinogen 0.2 mg/dL (0-1)
[2022-02-28 18:23] LABS: Bacteria PACKED /HPF (NEGATIVE); Epithelial Cells RARE /HPF (FEW); Mucus SLIGHT /HPF (NEGATIVE); WBC 26-50 /HPF (0-5)
[2022-02-28 18:25] LABS: Urine Cultured Indicated? YES
[2022-02-28 18:49] LABS: INFLUENZA A NEGATIVE (NEGATIVE); INFLUENZA B NEGATIVE (NEGATIVE); RESPIRATORY SYNCTIAL VIRUS NEGATIVE (Negative); SARS-CoV-2 Xpert Express NEGATIVE (NEGATIVE)
[2022-02-28] MEDS ORDERED: ROCEPHIN 1 Gm-D5w 50 ml Bag** 1 G/50 ML IVPB IV STA (19:05)
[2022-02-28] MEDS ORDERED: ROCEPHIN 1 Gm-D5w 50 ml Bag** 1 G/50 ML IVPB IV ONE (19:09)
[2022-02-28 19:56] VITALS: BP 115/62; PULSE 68; O2SAT 96
--- NOTE | 2022-03-01 10:26 | XRAY ---
Exam: CT of the abdomen and pelvis without IV or oral contrast. CTDI: 25.21 mGy Comparison: CT of the abdomen and pelvis without IV contrast from 01/16/2022. Indication: 71-year-old female with history of nausea/vomiting/diarrhea for 3-4 months. She also gives a history of prior gastric bypass surgery, cholecystectomy, appendectomy, and hysterectomy (history of uterine cancer). Technique: Non-IV contrast axial images were obtained through the abdomen and pelvis. No oral contrast was given. Coronal and sagittal reconstructed images were created and reviewed. Findings: The visualized lung bases reveal scant linear stranding consistent with linear atelectasis and/or scarring. No active lung disease is seen at the lung bases. I again note surgical suture material within the epigastrium and left hemiabdomen consistent with prior gastric bypass surgery representing no change. Surgical clips consistent with prior cholecystectomy are seen within the right upper quadrant. Evaluation of the solid organs is mildly limited without the use of IV contrast. However, I see no gross abnormality of the liver, spleen, or adrenal glands. There is diffuse fatty change noted throughout the pancreas representing no change. A pancreatic mass or inflammatory changes are not seen at this level. The kidneys appear of unremarkable size and reveal no gross mass, renal calculi, or hydronephrosis. The ureters do not appear dilated and reveal no ureterolith. The patient is again noted be morbidly obese. Mild vascular calcification is seen within the distal abdominal aorta and iliac arteries. No abdominal aortic aneurysm or abnormal retroperitoneal lymphadenopathy is seen. No free intraperitoneal air is seen. There is a moderate-sized fat-containing left periumbilical hernia, best seen on on axial image #67 and sagittal image #164. In retrospect, believe this is unchanged. No bowel containing ventral hernia is seen. I see no evidence of bowel obstruction. Scattered stool is seen throughout the colon. There is some minimal left-sided diverticulosis without evidence of acute diverticulitis. Both the appendix and uterus are surgically absent. The urinary bladder is partially filled. A few calcified phleboliths are seen within the pelvis. No other abnormal pelvic mass or free intraperitoneal fluid is seen. No abnormal iliac or inguinal lymphadenopathy is seen. The bones reveal no acute fracture or aggressive bony lesion. There is marked multilevel degenerative disc disease and degenerative joint disease throughout the lower thoracolumbar spine. This appears similar to the prior study. There is mild curvature of the upper lumbar spine toward the left and mild to moderate curvature of the mid lumbar spine toward the right. Impression: 1. No acute process is seen within the abdomen or pelvis. 2. There is considerable diffuse fatty replacement of the pancreas. I also note an umbilical/left periumbilical fat-containing hernia. These findings are unchanged from the prior study dated 01/16/2022 in retrospect. 3. There is evidence of prior gastric bypass surgery, cholecystectomy, appendectomy, and hysterectomy. 4. Chronic bone findings, as discussed above. 5. Minimal left hemicolon diverticulosis without evidence of acute diverticulitis. No bowel obstruction or free air/free fluid is seen.
== END 2022-02-28 20:02 | disposition home or self-care (01) ==
LOC: ED 15:50
DX: N39.0 Urinary tract infection, site not specified (principal); R53.1 Weakness; R11.2 Nausea with vomiting, unspecified; R50.9 Fever, unspecified; I10 Essential (primary) hypertension; Z79.891 Long term (current) use of opiate analgesic; Z79.899 Other long term (current) drug therapy; I20.9 Angina pectoris, unspecified
CPT/HCPCS: 0241U; 36000; 36415; 70450; 74022; 74176; 80053; 81015; 82150; 83605; 83690; 84484; 85025; 85610; 87040; 87086; 93005; 96365; 99284; J0696

== ENCOUNTER 2022-06-21 12:19 | Day surgery (SDC) | payer MEDICARE, OTHER ==
[2022-06-21] MEDS ORDERED: Marcaine Mpf 0.5% Vial 30 Ml IJ ONE (12:20)
[2022-06-21] MEDS ORDERED: Xylocaine 1% Vial 30 ML PF IJ ONE (12:20)
[2022-06-21] MEDS ORDERED: Depo-Medrol 40 MG/ML IM ONE (12:20)
[2022-06-21] MEDS ORDERED: DIPRIVAN 200 MG/20 ML IV ONE (14:48)
--- NOTE | 2022-06-21 16:44 | XRAY ---
Indication: Right SI joint injection. Intraoperative fluoroscopy provided for 10 seconds. 2 digital spot image submitted for interpretation demonstrates posterior needle tip projecting over the right SI joint. Correlate with intraoperative findings/report.
--- NOTE | 2022-06-21 16:50 | XRAY ---
10 seconds fluoroscopy time in surgery for injection of the right SI joint.
== END 2022-06-21 15:25 | disposition home or self-care (01) ==
LOC: SDC-PAIN 12:19
PROVIDERS: ATTEND Psychiatry & Neurology Pain Medicine
DX: M46.1 Sacroiliitis, not elsewhere classified (principal); Z79.899 Other long term (current) drug therapy
CPT/HCPCS: 27096; 72170; 77002; G0260; J1030; J2001; J2704

== ENCOUNTER 2022-07-19 14:42 | Day surgery (SDC) | payer MEDICARE, OTHER ==
[2022-07-19] MEDS ORDERED: Depo-Medrol 40 MG/ML IM ONE (14:43)
[2022-07-19] MEDS ORDERED: BUPIVACAINE 0.5% VIAL IJ ONE (14:43)
[2022-07-19] MEDS ORDERED: Xylocaine 1% Vial 30 ML PF IJ ONE (14:43)
--- NOTE | 2022-07-19 19:58 | XRAY ---
Indication: Right hip injection. Intraoperative fluoroscopy provided for 44 seconds. Single digital spot image submitted for interpretation demonstrates needle tip lateral to the right femur neck. Small amount of contrast injected for needle tip placement. Correlate with intraoperative findings/report.
--- NOTE | 2022-07-20 08:45 | XRAY ---
44 seconds of fluoroscopy was used in surgery for a right intra-articular hip injection.
== END 2022-07-19 17:35 | disposition home or self-care (01) ==
LOC: SDC-PAIN 14:42
PROVIDERS: ATTEND Psychiatry & Neurology Pain Medicine
DX: M16.11 Unilateral primary osteoarthritis, right hip (principal); Z79.899 Other long term (current) drug therapy
CPT/HCPCS: 20610; 73501; 77002; J1030; J2001; Q9966

== ENCOUNTER 2022-11-08 12:56 | Day surgery (SDC) | payer MEDICARE, OTHER ==
[2022-11-08] MEDS ORDERED: BUPIVACAINE 0.5% VIAL IJ ONE (12:57)
[2022-11-08] MEDS ORDERED: LIDOCAINE HCL 1% 50 MG/5 ML VL PF IJ ONE (12:57)
[2022-11-08] MEDS ORDERED: Depo-Medrol 40 MG/ML IM ONE (12:57)
[2022-11-08] MEDS ORDERED: DIPRIVAN 200 MG/20 ML IV ONE (14:37)
[2022-11-08] MEDS ORDERED: BENADRYL 50 MG/ML ONE (14:38)
--- NOTE | 2022-11-08 15:05 | XRAY ---
Indication: Right L4-S1 RFA. Intraoperative fluoroscopy provided for 29 seconds. 4 digital spot image submitted for interpretation demonstrates posterior needle tips projecting over the expected right L4-S1 nerve roots. Correlate with intraoperative findings/report.
--- NOTE | 2022-11-08 15:07 | XRAY ---
29 seconds of fluoroscopy was used in surgery for a right L4-S1 RFA.
[2022-11-08] MEDS ORDERED: Lactated Ringers 1,000 ML IV ONE (15:27)
== END 2022-11-08 15:10 | disposition home or self-care (01) ==
LOC: SDC-PAIN 12:56
PROVIDERS: ATTEND Psychiatry & Neurology Pain Medicine
DX: M47.816 Spondylosis without myelopathy or radiculopathy, lumbar region (principal); Z79.899 Other long term (current) drug therapy
CPT/HCPCS: 64635; 64636; 72100; 77002; 99100; J1030; J1200; J2001; J2704

== ENCOUNTER 2022-11-15 12:56 | Day surgery (SDC) | payer MEDICARE, OTHER ==
[2022-11-15] MEDS ORDERED: Depo-Medrol 40 MG/ML IM ONE (12:57)
[2022-11-15] MEDS ORDERED: BUPIVACAINE 0.5% VIAL IJ ONE (12:57)
[2022-11-15] MEDS ORDERED: LIDOCAINE HCL 1% 50 MG/5 ML VL PF IJ ONE (12:57)
[2022-11-15] MEDS ORDERED: BENADRYL 50 MG/ML ONE (14:45)
[2022-11-15] MEDS ORDERED: DIPRIVAN 200 MG/20 ML IV ONE (15:09)
[2022-11-15] MEDS ORDERED: Lactated Ringers 1,000 ML IV ONE (15:33)
--- NOTE | 2022-11-15 16:31 | XRAY ---
Indication: Left L4-S1 RFA. Intraoperative fluoroscopy provided for 35 seconds. 3 digital spot image submitted for interpretation demonstrates posterior needle tips projecting over the expected left L4-S1 nerve roots. Correlate with intraoperative findings/report.
--- NOTE | 2022-11-15 16:50 | XRAY ---
35 seconds of fluoroscopy was used in surgery for a left L4-S1 RFA.
== END 2022-11-15 15:45 | disposition home or self-care (01) ==
LOC: SDC-PAIN 12:56
PROVIDERS: ATTEND Psychiatry & Neurology Pain Medicine
DX: M47.816 Spondylosis without myelopathy or radiculopathy, lumbar region (principal); Z79.899 Other long term (current) drug therapy
CPT/HCPCS: 64635; 64636; 72100; 77002; 99100; J1030; J1200; J2001; J2704

== ENCOUNTER 2022-12-13 13:14 | Day surgery (SDC) | payer MEDICARE, OTHER ==
[2022-12-13] MEDS ORDERED: BUPIVACAINE 0.5% VIAL IJ ONE (13:15)
[2022-12-13] MEDS ORDERED: Depo-Medrol 40 MG/ML IM ONE (13:15)
[2022-12-13] MEDS ORDERED: DIPRIVAN 200 MG/20 ML IV ONE (15:13)
--- NOTE | 2022-12-13 15:57 | XRAY ---
Indication: Right L3-L5 transforaminal VEENA. Intraoperative fluoroscopy provided for 33 seconds. 6 digital spot images submitted for interpretation demonstrates posterior needle tips projecting over the expected right L3 and L4 nerve roots. Small amount of contrast injected for needle tip placement. Correlate with intraoperative findings/report.
--- NOTE | 2022-12-13 17:08 | XRAY ---
33 seconds of fluoroscopy was used in surgery for a right L3-L5 transforaminal VEENA.
[2022-12-13] MEDS ORDERED: Lactated Ringers 1,000 ML IV ONE (17:33)
== END 2022-12-13 16:05 | disposition home or self-care (01) ==
LOC: SDC-PAIN 13:14
PROVIDERS: ATTEND Psychiatry & Neurology Pain Medicine
DX: M54.16 Radiculopathy, lumbar region (principal); Z79.899 Other long term (current) drug therapy
CPT/HCPCS: 64483; 64484; 72100; 77003; J1030; J2704; Q9966

== ENCOUNTER 2023-02-21 07:49 | Day surgery (SDC) | payer MEDICARE, OTHER ==
[2023-02-21] MEDS ORDERED: BUPIVACAINE 0.5% VIAL IJ ONE (07:50)
[2023-02-21] MEDS ORDERED: Depo-Medrol 40 MG/ML IM ONE (07:50)
[2023-02-21] MEDS ORDERED: DIPRIVAN 200 MG/20 ML IV ONE (09:35)
--- NOTE | 2023-02-21 10:19 | XRAY ---
Indication: Right SI joint and right hip injection. Intraoperative fluoroscopy provided for 24 seconds. 4 digital spot image obtained prone submitted for interpretation demonstrates posterior needle tip projecting over the right SI joint. Additional needle tip lateral to the right femur neck with small amount of contrast injected for needle tip placement. Correlate with intraoperative findings/report.
--- NOTE | 2023-02-21 10:43 | XRAY ---
23 seconds of fluoroscopy was used in surgery for a right sacroiliac joint and right intra-articular hip injection.
[2023-02-21] MEDS ORDERED: Lactated Ringers 1,000 ML IV ONE (11:02)
== END 2023-02-21 10:10 | disposition home or self-care (01) ==
LOC: SDC-PAIN 07:49
PROVIDERS: ATTEND Psychiatry & Neurology Pain Medicine
DX: M46.1 Sacroiliitis, not elsewhere classified (principal); M16.11 Unilateral primary osteoarthritis, right hip
CPT/HCPCS: 01992; 20610; 27096; 72202; 77002; 99100; G0260; J1030; J2704; Q9966

== ENCOUNTER 2023-05-09 13:37 | Day surgery (SDC) | payer MEDICARE, OTHER ==
[2023-05-09] MEDS ORDERED: LIDOCAINE HCL 1% 50 MG/5 ML VL PF IJ ONE (13:38)
[2023-05-09] MEDS ORDERED: Depo-Medrol 40 MG/ML IM ONE (13:38)
[2023-05-09] MEDS ORDERED: DIPRIVAN 200 MG/20 ML IV ONE (15:12)
[2023-05-09] MEDS ORDERED: Lactated Ringers 1,000 ML IV ONE (16:17)
--- NOTE | 2023-05-09 16:44 | XRAY ---
Indication: Right piriformis injection. Intraoperative fluoroscopy provided for 18 seconds. Single digital spot image submitted for interpretation demonstrates posterior needle tip projecting over the expected right piriformis. Small amount of contrast injected for needle tip placement. Correlate with intraoperative findings/report.
--- NOTE | 2023-05-09 16:47 | XRAY ---
18 seconds of fluoroscopy was used in surgery for a right piriformis injection.
== END 2023-05-09 15:40 | disposition home or self-care (01) ==
LOC: SDC-PAIN 13:37
PROVIDERS: ATTEND Psychiatry & Neurology Pain Medicine
DX: M79.18 Myalgia, other site (principal)
CPT/HCPCS: 20552; 72170; 77002; 99100; J1030; J2001; J2704; Q9966